=== PATIENT | female | born 1955 | race Caucasian/White ===

== ENCOUNTER 2019-05-18 20:05 | Emergency (ER) | payer BC ==
[2019-05-18 20:18] VITALS: TEMP 99.1
[2019-05-18] MEDS ORDERED: DEXAMETHASONE INJ 10 MG/ML VIAL IM ONE (20:27)
--- NOTE | 2019-05-18 20:30 | ED.PDOC ---
History of Present Illness - General Chief Complaint: ENT Problem Stated Complaint: Sore throat Time Seen by Provider: 05/18/19 20:23 Source: RN notes reviewed, Vital Signs reviewed - History of Present Illness Initial Comments: pt is a 63 yo F who presents to ED with daughter for 3 day h/o sore throat. Denies cough, fever, congestion or ear ache. States she has sharp pain to throat when she tries to swallow liquids or food. Has used OTC pain meds and decongestants w/o relief. Allergies/Adverse Reactions: Allergies NO KNOWN ALLERGY Allergy (Verified 05/18/19 20:18) Home Medications: Ambulatory Orders Acetamin W/Cod Elix 120/12 [Tylenol/Codiene Elixir 120/12] 10 ml PO Q6H PRN #150 ml 05/18/19 Amoxicillin [Amoxil] 500 mg PO TID 10 Days cap 05/18/19 Review of Systems - Review of Systems Constitutional: Denies: chills, fever, malaise EENTM: States: throat pain. Denies: eye pain, blurred vision, ear pain, nose pain, nose congestion Respiratory: Denies: cough, short of breath Cardiology: Denies: chest pain, palpitations, syncope Gastrointestinal/Abdominal: Denies: diarrhea, nausea, vomiting Musculoskeletal: Denies: back pain All other Systems: Reviewed and Negative Past Medical History (General) - Patient Medical History Hx Asthma: No Hx Cardiac Disorders: Yes - mitral valve prolapse Hx Hypertension: Yes Hx Thyroid Disease: Yes Surgical History: cholecystectomy, Hysterectomy - Vaccination History Hx Tetanus, Diphtheria Vaccination: Yes Hx Influenza Vaccination: Yes - Social History Hx Tobacco Use: No Hx Alcohol Use: No Family Medical History - Family History Mother Family History: Unknown Hx Cardiac Disease: Yes Physical Exam - Physical Exam General Appearance: Alert, Comfortable, No apparent distress Ear Exam: bilateral ear: canal normal, TM normal Nasal Exam: normal inspection Throat Exam: other - There is pharyngeal erythema with exudates. No trismus or uvular shift. no peritonsilar mass Cardiovascular/Respiratory: regular rate, rhythm, normal peripheral pulses, normal breath sounds, no respiratory distress Abdominal Exam: non-tender Neurologic: alert, normal mood/affect Skin Exam: normal color Progress - Progress Progress: 05/18/19 20:30 Pt presents with 3 day h/o painful swallowing and sore throat. exam shows pharyngeal erythema with exudates and anterior cervical lymphadenopathy. No improvement with OTC meds. Will treat with Decadron IM and Amoxil at home and f/u with pcp in 1-2 days for recheck. srp given. Departure - Departure Clinical Impression: Pharyngitis Qualifiers: Pharyngitis/tonsillitis etiology: unspecified etiology Qualified Code(s): J02.9 - Acute pharyngitis, unspecified Time of Disposition: 20:32 Disposition: Discharge to Home or Self Care Condition: Good Departure Forms: ED Discharge - Pt. Copy, Patient Portal Self Enrollment Instructions: Sore Throat in Adults Diet: other - advance diet as tolerated Activity: increase activity as tolerated Prescriptions: Acetamin W/Cod Elix 120/12 [Tylenol/Codiene Elixir 120/12] 10 ml PO Q6H PRN #150 ml PRN Reason: Pain Amoxicillin [Amoxil] 500 mg PO TID 10 Days cap Home Medications: Ambulatory Orders Acetamin W/Cod Elix 120/12 [Tylenol/Codiene Elixir 120/12] 10 ml PO Q6H PRN #150 ml 05/18/19 Amoxicillin [Amoxil] 500 mg PO TID 10 Days cap 05/18/19
[2019-05-18 20:43] VITALS: BP 111/79; O2SAT 95
== END 2019-05-18 20:45 | disposition home or self-care (01) ==
LOC: ER 20:05
DX: J02.9 Acute pharyngitis, unspecified (principal); I34.1 Nonrheumatic mitral (valve) prolapse; I10 Essential (primary) hypertension; E07.9 Disorder of thyroid, unspecified